=== PATIENT | female | born 2000 | race Two or more races ===

== ENCOUNTER 2021-06-10 10:50 | Emergency (ER) | payer SELFPAY ==
[~2021-06-10] VITALS: Ht 167.6 cm; Wt 112.0 kg
[2021-06-10 12:01] VITALS: BP 118/59
== END 2021-06-10 14:23 | disposition home or self-care (01) ==
LOC: ER 10:50
DX: S09.90XA Unspecified injury of head, initial encounter (principal); W19.XXXA Unspecified fall, initial encounter; Y93.9 Activity, unspecified; Y92.89 Other specified places as the place of occurrence of the external cause; Y99.8 Other external cause status; F12.10 Cannabis abuse, uncomplicated
CPT/HCPCS: 70450